=== PATIENT | female | born 1990 | race American Indian/Alaskan Native ===

== ENCOUNTER 2016-08-30 12:41 | Emergency (ER) | payer BC ==
[2016-08-30 14:55] VITALS: BP 115/76
== END 2016-08-30 19:00 | disposition left against medical advice (07) ==
LOC: ED 12:41
DX: M79.643 Pain in unspecified hand (principal); Z53.21 Procedure and treatment not carried out due to patient leaving prior to being seen by health care provider

== ENCOUNTER 2018-03-14 08:14 | Emergency (ER) | payer BC ==
[2018-03-14 11:00] VITALS: BP 110/68
[2018-03-14] MEDS ORDERED: ZOFRAN IV ONE (11:22)
[2018-03-14] MEDS ORDERED: DECADRON IV ONE (11:22)
[2018-03-14] MEDS ORDERED: TORADOL IV ONE (11:22)
[2018-03-14] MEDS ORDERED: NACL 0.9% 1000 ML 1,000 ML IV ONE (11:22)
--- NOTE | 2018-03-14 11:24 | Emergency Department Report ---
ED Headache HPI - General Chief Complaint: Headache Stated Complaint: ANXIETY ATTACK/MIGRAINES/VISION LOSS Time Seen by Provider: 03/14/18 11:16 Source: patient - History of Present Illness Initial Comments: Patient here reported that she has been having frontal headache with blurred vision to her right eye 24 hours with anxiety. She said when her headache comes it comes to 3 months at a time and has been getting worse. She is also reporting that she is having an some sinus problems and also anxiety problems. Pain is 8 out of 10 and throbbing in and comes and goes. Denies any fever or chills denies any trauma, denies any neck pain or stiffness. Patient has no medical history. She took [id number] medication that did not help. Timing/Duration: increasing, waxing and waning Quality: severe, throbbing Head Injury Location: frontal Recent Head Trauma: frequent headaches Modifying Factors: improves with: exposure to light Associated Symptoms: vision changes, other (anxiety). denies: confusion, fatigue, facial pain, fever/chills, flushing, loss of consciousness, nausea/ vomiting, nasal congestion, nasal drainage, numbness in legs/feet, rash, seizures, sinus infection, stiff neck, weakness Allergies/Adverse Reactions: Allergies No Known Allergies Allergy (Unverified 08/30/16 14:51) Home Medications: Ambulatory Orders Butalb/Acetaminophen/Caffeine [Fioricet 50-300-40 mg CAP] 1 cap PO Q8HR PRN #12 cap 03/14/18 Ibuprofen 800 mg PO PRN 03/14/18 Ondansetron [Zofran Odt] 4 mg PO Q6H PRN #20 tab.rapdis 03/14/18 ED Review of Systems ROS: Stated complaint: ANXIETY ATTACK/MIGRAINES/VISION LOSS Other details as noted in HPI Constitutional: denies: chills, fever Eyes: vision change. denies: eye pain, eye discharge ENT: denies: ear pain, throat pain, congestion Respiratory: denies: cough, shortness of breath, SOB with exertion, SOB at rest , stridor, wheezing Cardiovascular: denies: chest pain, palpitations, dyspnea on exertion, edema, syncope, paroxysmal nocturnal dyspnea Gastrointestinal: denies: abdominal pain, nausea, vomiting, diarrhea, hematemesis, hematochezia Genitourinary: denies: urgency, dysuria, frequency, hematuria, discharge Musculoskeletal: denies: back pain, joint swelling, arthralgia Skin: denies: rash, lesions Neurological: headache. denies: weakness, paresthesias Psychiatric: anxiety. denies: depression, auditory hallucinations, visual hallucinations, homicidal thoughts, suicidal thoughts Hematological/Lymphatic: denies: easy bleeding, easy bruising ED Past Medical Hx - Past Medical History Previous Medical History?: No - Surgical History Past Surgical History?: No - Family History Family history: hypertension - Social History Smoking Status: Never Smoker Substance Use Type: Prescribed - Medications Home Medications: Home Medications Medication Instructions Recorded Confirmed Last Taken Type Butalb/Acetaminophen/Caffeine 1 cap PO Q8HR PRN #12 cap 03/14/18 Unknown Rx [Fioricet 50-300-40 mg CAP] Ibuprofen 800 mg PO PRN 03/14/18 03/14/18 03/13/18 20:00 History Ondansetron [Zofran Odt] 4 mg PO Q6H PRN #20 tab.rapdis 03/14/18 Unknown Rx ED Physical Exam - General Limitations: No Limitations General appearance: alert, in no apparent distress - Head Head exam: Present: atraumatic, normocephalic, normal inspection, other (normal exam) - Eye Eye exam: Present: normal appearance, PERRL, EOMI. Absent: nystagmus, periorbital swelling, periorbital tenderness Pupils: Present: normal accommodation - ENT ENT exam: Present: normal exam, normal orophraynx, mucous membranes moist, TM's normal bilaterally, normal external ear exam - Neck Neck exam: Present: normal inspection, full ROM, thyromegaly. Absent: tenderness, lymphadenopathy - Respiratory Respiratory exam: Present: normal lung sounds bilaterally. Absent: respiratory distress, chest wall tenderness - Cardiovascular Cardiovascular Exam: Present: regular rate, normal rhythm, normal heart sounds. Absent: systolic murmur, diastolic murmur - GI/Abdominal GI/Abdominal exam: Present: soft, normal bowel sounds. Absent: distended, tenderness, guarding, rebound, rigid, organomegaly, mass - Extremities Exam Extremities exam: Present: normal inspection, full ROM, normal capillary refill , other (No cce. + 2 pulses in all extremities, no neurovascular compromise). Absent: tenderness, pedal edema, joint swelling, calf tenderness - Back Exam Back exam: Present: normal inspection, full ROM, other (ambulates without any discharge). Absent: tenderness, CVA tenderness (R), CVA tenderness (L), muscle spasm, paraspinal tenderness, vertebral tenderness, rash noted - Neurological Exam Neurological exam: Present: alert, oriented X3, normal gait, reflexes normal. Absent: motor sensory deficit - Expanded Neurological Exam Expanded Neurological exam: Absent: innattentive, memory loss-remote event, memory loss- recent event, ataxia, receptive aphasia, expressive aphasia, total aphasia, tremor, protecting the airway Patient oriented to: Present: person, place, time Speech: Present: fluid speech Cranial nerves: EOM's Intact: Normal, Gag Reflex: Normal, Tongue Deviation: Normal, Nystagmus: Normal, Facial Sensation: Normal Cerebellar function: Romberg: Normal Upper motor neuron: Pronator Drift: Normal, Sensory Extinction: Normal Sensory exam: Upper Extremity Light Touch: Normal, Upper Extremity Pin Prick: Normal, Upper Extremity Temperature: Normal, UE 2 Point Discrimination: Normal, Lower Extremity Light Touch: Normal, Lower Extremity Pin Prick: Normal, Lower Extremity Temperature: Normal, LE 2 Point Discrimination: Normal Motor strength exam: RUE: 5, LUE: 5, RLE: 5, LLE: 5 Best Eye Response (Vernon): (4) open spontaneously Best Motor Response (Ade): (6) obeys commands Best Verbal Response (Ade): (5) oriented Ade Total: 15 - Psychiatric Psychiatric exam: Present: normal affect, normal mood - Skin Skin exam: Present: warm, dry, intact, normal color. Absent: rash ED Course Vital Signs 03/14/18 10:55 Temperature 98.4 F Pulse Rate 53 L Respiratory 14 Rate Blood Pressure 110/68 Blood Pressure 110/68 [Left] O2 Sat by Pulse 100 Oximetry - Reevaluation(s) Reevaluation #1: 03/14/18 13:02 Patient receive Zofran 8 mg ODT, Decadron 10 mg IM, Toradol 30 mg IM . She is feeling better and wanted to address her anxiety that will refer her to this outside [facility] where she can discuss this with primary care doctor. She voiced understanding . Headache is down to 3 out of 10 ED Medical Decision Making - Medical Decision Making This is a 27-year-old female here for headache and anxiety. CT scan of the head and brain without contrast shows no acute intracranial or extracranial findings. Assessment/plan 1: Headache-better with Decadron 10 mg IM, Zofran 8 mg ODT and Toradol 30 mg IV and will discharge home on Fioricet 2:Anxiety mild-refer her to [facility] primary care as she does not have a primary care physician. Patient is calm and does not seem to be anxious at present. Patient discharged home in stable condition and she was given her reported on CT scan. She will be following up with the [facility] for further management of headache and anxiety. I will also refer her to neurology Dr. tracy. Discharged home with prescription for Fioricet and Zofran Critical care attestation.: If time is entered above; I have spent that time in minutes in the direct care of this critically ill patient, excluding procedure time. ED Disposition Clinical Impression: Headache Qualifiers: Headache type: unspecified Headache chronicity pattern: acute headache Intractability: not intractable Qualified Code(s): R51 - Headache Disposition: DC-01 TO HOME OR SELFCARE Is pt being admited?: No Does the pt Need Aspirin: No Condition: Stable Instructions: Acute Headache (ED) Additional Instructions: Follow-up with outside Medical Center as discussed Seereferral to neurologist and discharge instruction paperwork. Take medication as prescribed Referrals: BRYANNA PATTERSON MD [Staff Physician] - 2-3 Days [facility] [Outside] - 2-3 Days Forms: Work/School Release Form(ED)
[2018-03-14] MEDS ORDERED: ZOFRAN IM ONE (11:52)
[2018-03-14] MEDS ORDERED: DECADRON IM ONE (11:52)
[2018-03-14] MEDS ORDERED: TORADOL IM ONE (11:52)
[2018-03-14] MEDS ORDERED: ZOFRAN ODT PO ONE (11:54)
[2018-03-14] MEDS ORDERED: DELTASONE PO ONE (11:54)
--- NOTE | 2018-03-14 12:13 | Cat Scan Report ---
CT HEAD WITHOUT CONTRAST: HISTORY: Recurrent headaches. TECHNIQUE: Sequential 2.5mm CT images. COMPARISON: none. FINDINGS: Cerebral Parenchyma: Within normal limits. Cerebellum: Within normal limits. Brainstem: Within normal limits. Ventricles: Normal. Sella: Normal. Extra-axial spaces: Normal. Basal Cisterns: Normal. Intracranial Hemorrhage: None. Midline Shift: None. Calvarium: Normal. Sinuses: Normal. Mastoid Air Cells: Normal. Visualized Orbits: Normal. IMPRESSION: Cranial CT scan within normal limits.
== END 2018-03-14 13:27 | disposition home or self-care (01) ==
LOC: ED 08:14
DX: R51 Headache (principal); F41.9 Anxiety disorder, unspecified
CPT/HCPCS: 70450; 96372; 96374; 99283; J1100; J1885; J2405; J7512; Q0162